=== PATIENT | male | born 1995 | race Caucasian/White ===

== ENCOUNTER 2021-06-20 10:42 | Emergency (ER) | payer BC ==
[2021-06-20 10:58] VITALS: BP 167/103; PULSE 97
[2021-06-20 12:58] LABS: CORONAVIRUS COVID-19 NAA POSITIVE (NEGATIVE)
== END 2021-06-20 12:18 | disposition home or self-care (01) ==
LOC: JD.ED 10:42
DX: U07.1 COVID-19 (principal); R19.7 Diarrhea, unspecified
CPT/HCPCS: 0240U; 99284

== ENCOUNTER 2022-09-24 19:28 | Emergency (ER) | payer BC ==
[2022-09-24] MEDS ORDERED: Sodium Chloride 0.9% 10 ML Syringe FLUSH PRN (19:51)
[2022-09-24 19:58] LABS: BASOPHILS ABSOLUTE AUTO 0.03 K/mm3 (0.01-0.08); BASOPHILS PERCENT AUTO 0.4 % (0.1-1.2); EOSINOPHILS ABSOLUTE AUTO 0.22 K/mm3 (0.04-0.54); EOSINOPHILS PERCENT AUTO 2.9 (0.8-7.0); HEMATOCRIT 46.3 % (40.1-51.0); HEMOGLOBIN 16.1 gm/dl (13.7-17.5); IMMATURE GRAN ABSOLUTE AUTO 0.02 K/mm3 (0.00-0.10); IMMATURE GRAN PERCENT AUTO 0.3 % (<=1.0); LYMPHOCYTES ABSOLUTE AUTO 2.32 K/mm3 (1.32-3.57); LYMPHOCYTES PERCENT AUTO 31.1 % (21.8-53.1); MEAN CORPUSCULAR HEMOGLOBIN 27.9 pg (25.7-32.2); MEAN CORPUSCULAR HGB CONC 34.8 g/dl (32.2-35.5); MEAN CORPUSCULAR VOLUME 80.1 fl (79.0-92.2); MEAN PLATELET VOLUME 12.2 fl (9.4-12.3); MONOCYTES ABSOLUTE AUTO 0.89 K/mm3 (0.30-0.82); MONOCYTES PERCENT AUTO 11.9 % (5.3-12.2); NEUTROPHILS ABSOLUTE AUTO 3.99 K/mm3 (1.78-5.38); NEUTROPHILS PERCENT AUTO 53.4 % (34.0-67.9); PLATELET COUNT,PLT 203 K/mm3 (163-337); RED BLOOD CELL COUNT 5.78 M/mm3 (4.63-6.08); WHITE BLOOD CELL COUNT,WBC 7.47 K/mm3 (4.23-9.07)
[2022-09-24 20:21] LABS: A/G RATIO 1.1 (1-2); ALBUMIN 4.1 g/dl (3.4-5.0); BILIRUBIN TOTAL 0.6 mg/dL (0.2-1.0); BUN/CREATININE RATIO 10.9 (14-18); CALCIUM 9.4 mg/dL (8.5-10.1); CREATININE 1.1 mg/dL (0.7-1.3); EST CRCL DRUG DOSING (CG) 129.38 mL/min; PROTEIN TOTAL,TP 7.7 g/dl (6.4-8.2)
[2022-09-24 22:28] VITALS: BP 138/79; PULSE 72
== END 2022-09-24 22:00 | disposition home or self-care (01) ==
LOC: JD.ED 19:28
DX: R07.89 Other chest pain (principal); E87.6 Hypokalemia
CPT/HCPCS: 36415; 71046; 71046-26; 80053; 84484; 85025; 85379; 93005; 93010; 99284; 99285